=== PATIENT | male | born 1960 | race Caucasian/White ===

== ENCOUNTER → 2016-09-17 | Outpatient (REF) | payer MEDICARE ==
[~2016-09-17] MED LIST: ALBU8.5H4 IH; AMLO5TAB4 PO; ARIP5TAB5 PO; ATOR10TA PO; CARDIOTAB; CHLO25CA10 PO; CMBV14CC IH; DISU250T PO; EZET10TA5 PO; FLC1T PO; LISINIPRIL; LSNP20T PO; MELA1TAB10 PO; MGX400T PO; MOME13HF2 IH; MONT10TA21 PO; MV I PO; OMAL150V SC; OMEP20CA6 PO; POTA10CA43 PO; POTA20TA12 PO; RANI150T11 PO; SCR1T1 PO; SERT100T PO; SERT25TA; SPIR25TA PO; SPRN25T PO; SULF-228 PO; THIA100T12 PO; ZOLP10TA PO; [UNRECOGNIZED DRUG - OTHER]
[2016-09-17 13:23] LABS: AMPHETAMINE SCREEN, URINE Negative (Negative); CANNABINOID SCREEN, URINE Negative (Negative); METHAMPHETAMINE SCREEN URINE S NEGATIVE (NEGATIVE); OPIATE SCREEN URINE Negative (Negative); PROPOXYPHENE STAT NEGATIVE (NEGATIVE)
== END ==
LOC: LAB 12:10
PROVIDERS: ATTEND Family Medicine
DX: R94.31 Abnormal electrocardiogram [ECG] [EKG] (principal)
CPT/HCPCS: 80307

== ENCOUNTER → 2016-09-17 | Outpatient (REF) | payer MEDICARE | LOC: LAB 12:42 | PROVIDERS: ATTEND Family Medicine | DX: Z53.8 Procedure and treatment not carried out for other reasons (principal) ==

== ENCOUNTER → 2016-09-23 | Outpatient (REF) | payer MEDICARE ==
[2016-09-23 11:09] LABS: AMPHETAMINE SCREEN, URINE Negative (Negative); CANNABINOID SCREEN, URINE Negative (Negative); METHAMPHETAMINE SCREEN URINE S NEGATIVE (NEGATIVE); OPIATE SCREEN URINE Negative (Negative); PROPOXYPHENE STAT NEGATIVE (NEGATIVE)
== END ==
LOC: LAB 10:46
PROVIDERS: ATTEND Family Medicine
DX: R00.0 Tachycardia, unspecified (principal)
CPT/HCPCS: 80307